=== PATIENT | female | born 1945 | race Caucasian/White ===

== ENCOUNTER → 2025-02-19 | Outpatient (CLI) | payer OTHER ==
[2025-02-19 21:15] LABS: Creatinine, Urine Random 130.0 mg/dL (27.00-270.00); Microalb/Creat Ratio UR, Rand 8.615 mg/g (0.000-30.000); Microalbumin, Random Urine 11.2 mg/L (0.000-20.000)
== END ==
LOC: LAB SHORT 10:51 → LAB 10:51
PROVIDERS: Physician Assistant
DX: E10.42 Type 1 diabetes mellitus with diabetic polyneuropathy (principal); E10.22 Type 1 diabetes mellitus with diabetic chronic kidney disease; E10.3393 Type 1 diabetes mellitus with moderate nonproliferative diabetic retinopathy without macular edema, bilateral; E10.65 Type 1 diabetes mellitus with hyperglycemia; E10.69 Type 1 diabetes mellitus with other specified complication; N18.9 Chronic kidney disease, unspecified
CPT/HCPCS: 82043; 82570